=== PATIENT | female | born 1955 | race Caucasian/White ===

== ENCOUNTER → 2017-06-02 | Outpatient (CLI) | payer MEDICAID ==
[2017-06-02 09:46] LABS: ALT 31 U/L (9-52); AST 22 U/L (14-36); Alkaline Phosphatase 76 U/L (38-126); Anion Gap 9 mmol/L; Blood Urea Nitrogen 21 mg/dL (7-17); Calcium 9.5 mg/dL (8.4-10.2); Carbon Dioxide 29 mmol/L (22-30); Chloride 93 mmol/L (98-107); Cholesterol 279 mg/dL (<200); Glucose 104 mg/dL (74-99); HDL Cholesterol 102 mg/dL (40-60); Non-African American GFR(MDRD) >60 (>60 ml/min/1.73 sqM); Potassium 4.3 mmol/L (3.5-5.1); Sodium 131 mmol/L (137-145); Total Bilirubin 0.7 mg/dL (0.2-1.3); Total Protein 7.2 g/dL (6.3-8.2)
== END | disposition home or self-care (01) ==
LOC: LABWHC1 08:58
PROVIDERS: ATTEND Internal Medicine
DX: E78.5 Hyperlipidemia, unspecified (principal); I10 Essential (primary) hypertension
CPT/HCPCS: 36415; 80053; 80061

== ENCOUNTER → 2017-07-10 | Outpatient (CLI) | payer MEDICAID ==
--- NOTE | 2017-07-11 09:41 | MM ---
Reason for exam: screening (asymptomatic). Last mammogram was performed 1 year ago. History: Patient is postmenopausal and had first child at age 29. Family history of breast cancer in maternal grandmother and breast cancer in maternal aunt. Benign left US cyst aspiration of the left breast, May 16, 2007. Physical Findings: A clinical breast exam by your physician is recommended on an annual basis and results should be correlated with mammographic findings. MG 3D Screening Mammo W/Cad Bilateral CC and MLO view(s) were taken. Prior study comparison: July 07, 2016, bilateral MG 3d screening mammo w/cad. July 06, 2015, bilateral MG screening mammo w CAD. The breast tissue is heterogeneously dense. This may lower the sensitivity of mammography. Finding: There are typically benign round calcifications in both breasts. There is no discrete abnormality. ASSESSMENT: Negative, BI-RAD 1 RECOMMENDATION: Routine screening mammogram of both breasts in 1 year.
== END | disposition home or self-care (01) ==
LOC: RADMAMWWP 09:50
PROVIDERS: ATTEND Obstetrics & Gynecology
DX: Z12.31 Encounter for screening mammogram for malignant neoplasm of breast (principal)
CPT/HCPCS: 77063; G0202

== ENCOUNTER → 2017-12-21 | Outpatient (CLI) | payer MEDICAID ==
[2017-12-21 10:36] LABS: HCT 40.4 % (34.0-46.0); HGB 14.1 gm/dL (11.4-16.0); MCH 31.5 pg (25.0-35.0); MCHC 34.9 g/dL (31.0-37.0); MCV 90.2 fL (80.0-100.0); Mean Platelet Volume 6.6; Platelet Count 227 k/uL (150-450); RBC 4.47 m/uL (3.80-5.40); RDW 14.1 % (11.5-15.5); WBC 4.6 k/uL (3.8-10.6)
[2017-12-21 10:48] LABS: ALT 20 U/L (9-52); AST 22 U/L (14-36); Albumin 4.4 g/dL (3.5-5.0); Alkaline Phosphatase 68 U/L (38-126); Anion Gap 10 mmol/L; Blood Urea Nitrogen 19 mg/dL (7-17); Calcium 9.7 mg/dL (8.4-10.2); Carbon Dioxide 31 mmol/L (22-30); Chloride 92 mmol/L (98-107); Cholesterol 306 mg/dL (<200); Glucose 96 mg/dL (74-99); HDL Cholesterol 95 mg/dL (40-60); LDL Cholesterol,Calculated 194 mg/dL (0-99); Potassium 4.2 mmol/L (3.5-5.1); Sodium 133 mmol/L (137-145); Triglycerides 87 mg/dL (<150)
== END | disposition home or self-care (01) ==
LOC: LABWHC1 09:40
PROVIDERS: ATTEND Internal Medicine
DX: I10 Essential (primary) hypertension (principal); E78.5 Hyperlipidemia, unspecified
CPT/HCPCS: 36415; 80053; 80061; 85027

== ENCOUNTER → 2018-07-18 | Outpatient (CLI) | payer MEDICAID ==
--- NOTE | 2018-07-19 12:11 | MM ---
Reason for exam: screening (asymptomatic). Last mammogram was performed 1 year ago. History: Patient is postmenopausal and had first child at age 29. Family history of breast cancer in maternal grandmother and breast cancer in maternal aunt. Benign left US cyst aspiration of the left breast, May 16, 2007. MG 3D Screening Mammo W/Cad Bilateral CC and MLO view(s) were taken. Prior study comparison: July 10, 2017, bilateral MG 3d screening mammo w/cad. July 07, 2016, bilateral MG 3d screening mammo w/cad. The breast tissue is heterogeneously dense. This may lower the sensitivity of mammography. No significant changes when compared with prior studies. ASSESSMENT: Benign, BI-RAD 2 RECOMMENDATION: Routine screening mammogram of both breasts in 1 year.
== END ==
LOC: RADMAMWWP 10:01
PROVIDERS: ATTEND Obstetrics & Gynecology
DX: Z12.31 Encounter for screening mammogram for malignant neoplasm of breast (principal)
CPT/HCPCS: 77063; 77067

== ENCOUNTER → 2019-08-12 | Outpatient (CLI) | payer MEDICARE, BC ==
--- NOTE | 2019-08-12 16:41 | BD ---
EXAMINATION TYPE: Axial Bone Density DATE OF EXAM: 08/12/2019 COMPARISON: 07/07/2016 CLINICAL HISTORY: Height: 62.5 IN Weight: 126 LBS RISK FACTORS HISTORY OF: Surgery to Hip(right) : YES When: 2016 Family History of Osteoporosis: MOTHER Active: YES Postmenopausal woman: AGE 48 MEDICATIONS: Osteoporosis Medications: NOT NOW Which medication: Fosamax FORTEO How Lon YEARS Additional Medications: CALCIUM, VIT D, BLOOD PRESSURE , CHOLESTEROL MEDS, FISH OIL, MULTI VIT, VIT C , VIT E, LYSINE,PROBIOTIC EXAM MEASUREMENTS: Bone mineral densitometry was performed using the [employer] System. Bone mineral density as measured about the Lumbar spine is: ----- L1-L4(G/cm2): 0.936 T Score Values are as follows: ----- L2: -2.6 ----- L3: -2.3 ----- L4: -1.2 ----- L1-L4: -2.0 Bone mineral density has: Decreased -8.6% since study of: 07/07/2016 RT HIP REPLACEMENT IN 2015 Bone mineral density about the L hip (g/cm2): 0.622 T Score values are as follows: -----L Neck: -3.0 -----L Total: -3.0 Bone mineral density has: Decreased -7.2% since study of: 07/07/2016 IMPRESSION: Osteoporosis (T Score less than -2.5). There is increased fracture risk and therapy is usually indicated based on age. Re-Screen 1-2 years. NOTE: T-SCORE=SD OF THE YOUNG ADULT MEAN.
--- NOTE | 2019-08-13 09:19 | MM ---
Reason for exam: screening (asymptomatic). Last mammogram was performed 1 year and 1 month ago. History: Patient is postmenopausal and had first child at age 29. Family history of breast cancer in maternal grandmother and breast cancer in maternal aunt. Benign left US cyst aspiration of the left breast, May 16, 2007. Physical Findings: A clinical breast exam by your physician is recommended on an annual basis and results should be correlated with mammographic findings. MG 3D Screening Mammo W/Cad Bilateral CC and MLO view(s) were taken. Prior study comparison: July 18, 2018, bilateral MG 3d screening mammo w/cad. July 10, 2017, bilateral MG 3d screening mammo w/cad. The breast tissue is heterogeneously dense. This may lower the sensitivity of mammography. Stable benign calcifications. There is no discrete abnormality. No significant changes when compared with prior studies. ASSESSMENT: Benign, BI-RAD 2 RECOMMENDATION: Routine screening mammogram of both breasts in 1 year.
== END | disposition home or self-care (01) ==
LOC: RADMAMWWP 10:06
PROVIDERS: ATTEND Obstetrics & Gynecology
DX: Z12.31 Encounter for screening mammogram for malignant neoplasm of breast (principal); M81.0 Age-related osteoporosis without current pathological fracture
CPT/HCPCS: 77063; 77067; 77080

== ENCOUNTER → 2019-09-16 | Outpatient (CLI) | payer MEDICARE, BC ==
[~2019-09-16] MED LIST: SODIUM CHLORIDE 0.9% 500 ML 500 ML in EMPTY BAG 1 BAG IV PRN; ZOLEDRONIC ACID 5 MG in SODIUM CHLORIDE 0.9% 100 ML IV NR
[2019-09-16 11:20] VITALS: BP 172/94; PULSE 73; RESP 16; TEMP 98.1
== END | disposition home or self-care (01) ==
LOC: PROCWHC3 10:59
PROVIDERS: ATTEND Internal Medicine
DX: M81.0 Age-related osteoporosis without current pathological fracture (principal)
CPT/HCPCS: 96365; J3489

== ENCOUNTER → 2020-08-17 | Outpatient (CLI) | payer MEDICARE, BC ==
--- NOTE | 2020-08-18 13:29 | MM ---
Reason for exam: screening (asymptomatic). Last mammogram was performed 1 year ago. History: Patient is postmenopausal and had first child at age 29. Family history of breast cancer in maternal grandmother and breast cancer in maternal aunt. Benign left US cyst aspiration of the left breast, May 16, 2007. Physical Findings: A clinical breast exam by your physician is recommended on an annual basis and results should be correlated with mammographic findings. MG 3D Screening Mammo W/Cad Bilateral CC and MLO view(s) were taken. XCCL view(s) were taken of the right breast. Prior study comparison: August 12, 2019, bilateral MG 3d screening mammo w/cad. July 18, 2018, bilateral MG 3d screening mammo w/cad. The breast tissue is heterogeneously dense. This may lower the sensitivity of mammography. There are benign appearing round calcifications bilaterally. There is no discrete abnormality. Right skin lesion redemonstrated. ASSESSMENT: Benign, BI-RAD 2 RECOMMENDATION: Routine screening mammogram of both breasts in 1 year.
== END | disposition home or self-care (01) ==
LOC: RADMAMWWP 09:48
PROVIDERS: ATTEND Obstetrics & Gynecology
DX: Z12.31 Encounter for screening mammogram for malignant neoplasm of breast (principal); Z80.3 Family history of malignant neoplasm of breast
CPT/HCPCS: 77063; 77067

== ENCOUNTER → 2020-09-17 | Outpatient (CLI) | payer MEDICARE, BC ==
[2020-09-17 09:13] VITALS: RESP 16
[2020-09-17 09:14] VITALS: PULSE 92; TEMP 98.1
== END | disposition home or self-care (01) ==
LOC: PROCWHC3 09:06
PROVIDERS: ATTEND Internal Medicine
DX: M81.0 Age-related osteoporosis without current pathological fracture (principal)
CPT/HCPCS: 96365; J3489

== ENCOUNTER → 2021-08-09 | Outpatient (CLI) | payer MEDICARE ==
[2021-08-09 16:43] LABS: African American GFR (CKD) 103.2 (60.0-200.0); Albumin 4.7 g/dL (3.8-4.9); Albumin/Globulin Ratio 2.24 (1.60-3.17); Anion Gap 11.2 mmol/L (4.00-12.00); BUN/Creat Ratio 25.86 Ratio (12.00-20.00); Blood Urea Nitrogen 18.1 mg/dL (9.0-27.0); Calcium 9.8 mg/dL (8.7-10.3); Carbon Dioxide 27.8 mmol/L (21.6-31.8); Globulin 2.1 g/dL (1.6-3.3); Potassium 3.9 mmol/L (3.5-5.5); Total Bilirubin 0.5 mg/dL (0.30-1.20); Total Protein 6.8 g/dL (6.2-8.2)
== END | disposition home or self-care (01) ==
LOC: LABWHC1 09:26
PROVIDERS: ATTEND Internal Medicine
DX: E55.9 Vitamin D deficiency, unspecified (principal); M81.0 Age-related osteoporosis without current pathological fracture
CPT/HCPCS: 36415; 80053; 82306; 82523; 83970

== ENCOUNTER → 2021-08-19 | Outpatient (CLI) | payer MEDICARE ==
--- NOTE | 2021-08-19 14:11 | BD ---
EXAMINATION TYPE: Axial Bone Density DATE OF EXAM: 08/19/2021 COMPARISON: 08.12.2019 CLINICAL HISTORY: 66 YR OLD FEMALE....ICD-10 CODE: M81.0 OSTEOPOROSIS Height: 62.5 Weight: 124 FRAX RISK QUESTIONS: Family History (Parent hip fracture): YES RISK FACTORS HISTORY OF: Surgery to RT HIP.....THR 5YRS AGO Family History of Osteoporosis: YES, MOTHER WITH PELVIS FXS Postmenopausal woman: YES, AT 50 YRS Hyperparathyroidism: NO Adrenal Insufficiency: NO MEDICATIONS: FOSAMAX, ACTENOL, FORTEO, IN THE PAST ON RECLAST NOW....FOR OSTEOPOROSIS.. TREATMENT FOR ABOUT 7-10 YRS Additional Medications: BP MEDS, VALIUM, STATIN FOR CHOLESTEROL, VIT D AND CALCIUM, RECLAST Additional History: HYPERTENSION, CHOLESTEROL, OSTEOPOROSIS MEDS, EXAM MEASUREMENTS: Bone mineral densitometry was performed using the [employer] System. Bone mineral density as measured about the Lumbar spine is: ----- L1-L4(G/cm2): 0.0981 T Score Values are as follows: ----- L1: -2.3 ----- L2: -2.4 ----- L3: -1.8 ----- L4: -0.6 ----- L1-L4: -1.7 Bone mineral density has: Increased 4.7% since study of: 08.12.2019 Bone mineral density about the L hip (g/cm2): 0.672 T Score values are as follows: -----L Neck: -2.7 -----L Total: -2.7 Bone mineral density has: Increased 6.5% since study of: 08.12.2019 FRAX%s: THERE IS A 24.5% CHANCE FOR A MAJOR OSTEOPOROTIC FX AND A 6.7% FOR HIP.....PROBABILITY FO R FX IN 10 YRS TIME IMPRESSION: Osteoporosis NOTE: T-SCORE=SD OF THE YOUNG ADULT MEAN.
== END | disposition home or self-care (01) ==
LOC: RADBDWWP 10:36
PROVIDERS: ATTEND Internal Medicine
DX: M81.0 Age-related osteoporosis without current pathological fracture (principal)
CPT/HCPCS: 77080

== ENCOUNTER → 2021-08-19 | Outpatient (CLI) | payer MEDICARE ==
--- NOTE | 2021-08-20 11:50 | MM ---
Reason for exam: screening (asymptomatic). Last mammogram was performed 1 year ago. History: Patient is postmenopausal and had first child at age 29. Family history of breast cancer in maternal grandmother and breast cancer in maternal aunt. Benign left US cyst aspiration of the left breast, May 16, 2007. Physical Findings: A clinical breast exam by your physician is recommended on an annual basis and results should be correlated with mammographic findings. MG 3D Screening Mammo W/Cad Bilateral CC and MLO view(s) were taken. Prior study comparison: August 17, 2020, bilateral MG 3d screening mammo w/cad. August 12, 2019, bilateral MG 3d screening mammo w/cad. The breast tissue is heterogeneously dense. This may lower the sensitivity of mammography. There are benign appearing round calcifications bilaterally. There is no discrete abnormality. ASSESSMENT: Benign, BI-RAD 2 RECOMMENDATION: Routine screening mammogram of both breasts in 1 year.
== END | disposition home or self-care (01) ==
LOC: RADBDWWP 10:26
PROVIDERS: ATTEND Obstetrics & Gynecology
DX: Z12.31 Encounter for screening mammogram for malignant neoplasm of breast (principal); Z78.0 Asymptomatic menopausal state; Z80.3 Family history of malignant neoplasm of breast
CPT/HCPCS: 77063; 77067

== ENCOUNTER → 2022-08-22 | Outpatient (CLI) | payer MEDICARE ==
--- NOTE | 2022-08-23 10:32 | MM ---
Reason for Exam: Screening (asymptomatic). Last screening mammogram was performed 12 month(s) ago. Patient History: Menarche at age 11. First Full-Term at age 29. Late child-bearing (after 30). Postmenopausal. 05/16/2007, Benign Cyst Aspiration on the left side. Maternal grandmother had breast cancer, age 80. Maternal aunt had breast cancer under age 50. Risk Values: Kallie 5 year model risk: 2.4%. NCI Lifetime model risk: 7.3%. Prior Study Comparison: 08/12/2019 Bilateral Screening Mammogram, [facility]. 08/17/2020 Bilateral Screening Mammogram, [facility]. 08/19/2021 Bilateral Screening Mammogram, [facility]. Tissue Density: The breast tissue is heterogeneously dense. This may lower the sensitivity of mammography. Findings: Analyzed By CAD. There is no suspicious group of microcalcifications or new suspicious mass in either breast. Benign-appearing calcifications bilaterally. No significant change from prior exams. Overall Assessment: Benign, BI-RAD 2 Management: Screening Mammogram of both breasts in 1 year. A clinical breast exam by your physician is recommended on an annual basis and results should be correlated with mammographic findings. Electronically signed and approved by: Brian Tay D.O.
== END | disposition home or self-care (01) ==
LOC: RADMAMWWP 09:56
PROVIDERS: ATTEND Obstetrics & Gynecology
DX: Z12.31 Encounter for screening mammogram for malignant neoplasm of breast (principal); Z78.0 Asymptomatic menopausal state; Z80.3 Family history of malignant neoplasm of breast; Z98.890 Other specified postprocedural states
CPT/HCPCS: 77063; 77067

== ENCOUNTER → 2023-03-15 | Outpatient (CLI) | payer MEDICARE ==
--- NOTE | 2023-03-15 14:52 | US ---
EXAMINATION TYPE: US carotid duplex BILAT DATE OF EXAM: 03/15/2023 COMPARISON: NONE CLINICAL INDICATION: Female, 67 years old with history of I65.23OCCLUSION AND STENOSIS OF BILATERAL C ; Carotid stenosis. TECHNIQUE: Carotid duplex ultrasound examination. Indirect Doppler criteria was utilized. FINDINGS: EXAM MEASUREMENTS: RIGHT: Peak Systolic Velocity (PSV) cm/sec ----- Right CCA: 66.5 ----- Right ICA: 74.2 ----- Right ECA: 64.8 ICA/CCA ratio: 1.12 RIGHT: End Diastole cm/sec ----- Right CCA: 17.8 ----- Right ICA: 23.0 ----- Right ECA: 12.7 LEFT: Peak Systolic Velocity (PSV) cm/sec ----- Left CCA: 66.7 ----- Left ICA: 80.2 ----- Left ECA: 32.4 ICA/CCA ratio: 1.20 LEFT: End Diastole cm/sec ----- Left CCA: 17.9 ----- Left ICA: 22.2 ----- Left ECA: 0.6 VERTEBRALS (direction of flow): Right Vertebral: Antegrade Left Vertebral: Antegrade Rhythm: Normal TRANSPORT MANAGER NOTES: No elevated velocities at this time. Difficult to follow bilateral ICA distally du e to tortuous vessel. IMPRESSION: Less than 50% stenosis of the bilateral carotid bifurcations. Criteria for Assigning % of Stenosis / Diameter reduction (Estimation based on the indirect measurements of the internal carotid artery velocities (ICA PSV). 1. Normal (no stenosis)=ICA PSV < 125 cm/s: ratio < 2.0: ICA EDV<40 cm/s. 2. Less than 50% stenosis=ICA PSV < 125 cm/s: ratio < 2.0: ICA EDV<40 cm/s. 3. 50 to 69% stenosis=ICA PSV of 125 to 230 cm/s: ration 2.0 ? 4.0: ICA EDV 40-100 cm/s. 4. Greater than 70% stenosis to near occlusion= ICA PSV > 230 cm/s: ratio > 4.0: ICA EDV > 100 cm/s. 5. Near occlusion= ICA PSV velocities may be low or undetectable: variable ratio and ICA EDV. 6. Total occlusion=unable to detect flow.
== END | disposition home or self-care (01) ==
LOC: RADCTMAIN 10:54
PROVIDERS: ATTEND Internal Medicine
DX: I65.23 Occlusion and stenosis of bilateral carotid arteries (principal)
CPT/HCPCS: 93880

== ENCOUNTER → 2023-03-29 | Outpatient (CLI) | payer MEDICARE ==
--- NOTE | 2023-03-29 16:34 | CT ---
EXAMINATION TYPE: CT heart w calcium score DATE OF EXAM: 03/29/2023 COMPARISON: None HISTORY: Screening for cardiovascular disorder. 213.9 CT DLP: 74.10 mGycm Automated exposure control for dose reduction was used. CT CALCIUM SCORING Coronary calcium is a marker for plaque (fatty deposits) in a blood vessel or atherosclerosis (harden ing of the arteries). The presence and amount of calcium detected in a coronary artery by the CT sca n, indicates the presence and amount of atherosclerotic plaque. These calcium deposits appear years before the development of heart disease symptoms such as chest pain and shortness of breath. A calcium score is computed for each of the coronary arteries based upon the volume and density of th e calcium deposits. This can be referred to as your calcified plaque burden. It does not correspond directly to the percentage of narrowing in the artery but does correlate with the severity of the un derlying coronary atherosclerosis. PROCEDURE TECHNIQUE - Prospective Gating was used. Slice thickness: 3mm. Density threshold (HU): 130, Pixel threshold: 3, Algorithm: discrete. RESULTS Region: LM Calcium Score ([place]atston): 0 Volume (mm3): 0 Mass (g): 0 Region: RCA Calcium Score ([place]): 169.92 Volume (mm3): 175.29 Mass (g): 58.43 Region: LAD Calcium Score ([place]): 161.42 Volume (mm3): 145.89 Mass (g): 48.63 Region: CX Calcium Score ([place]): 69.15 Volume (mm3): 59.91 Mass (g): 19.97 Region: PDA Calcium Score ([place]): 0 Volume (mm3): 0 Mass (g): 0 Total: Calcium Score ([place]atston): 400 Volume (mm3): 381.08 Mass (g): 127.03 TOTAL CALCIUM SCORE: 400 IMPRESSION: Calcium Score: 400 Implication: Definite atheromatous plaquing with a high likelihood of mild coronary artery disease p resent. Significant narrowing may be present. Risk of Coronary Artery Disease: Mild coronary artery disease highly likely. Significant narrowing po ssible. Impression: 1. Definite atheromatous plaquing within the coronary vessels with likelihood of coronary vessel dise ase. Consider additional cardiac workup. CALCIUM SCORE IMPLICATION RISK OF C ORONARY ARTERY DISEASE 0 No identifiable plaque Very low, generally less than 5% 1-10 Minimal identifiable plaque Very unlikely, less than 10% 11-100 Definite, at least mild atherosclerotic plaque Mild or m inimal coronary narrowings likely 101-400 Definite, at least moderate atherosclerotic plaque Mild coronary ar royal disease highly likely, significant narrowing possible 401 or Higher Extensive atherosclerotic plaque High lik elihood of at least one significant coronary narrowing
== END | disposition home or self-care (01) ==
LOC: RADCTMAIN 09:02
PROVIDERS: ATTEND Internal Medicine
DX: Z13.6 Encounter for screening for cardiovascular disorders (principal); I25.10 Atherosclerotic heart disease of native coronary artery without angina pectoris
CPT/HCPCS: 75571

== ENCOUNTER → 2023-05-09 | Outpatient (CLI) | payer MEDICARE ==
--- NOTE | 2023-05-09 14:11 | NM ---
EXAMINATION TYPE: NM stress cardiolite complete DATE OF EXAM: 05/09/2023 COMPARISON: NONE CLINICAL INDICATION: Female, 67 years old with history of R93.1 abn findings; TECHNIQUE: After the intravenous administration of 8.7 mCi Tc 99m Sestamibi - Rest images obtained 6 2 minutes post injection. The patient exercised using a KATHY protocol and 1 minute prior to peak e xercise was injected with 23 mCi Tc 99m Sestamibi - Stress images obtained 39 minutes post injection. FINDINGS: Targeted heart rate was achieved during performance of the study. Review of stress and rest SPECT katy ges demonstrates decreased perfusion involving the anterior wall near the cardiac base on stress imag es and therefore stress-induced ischemia is difficult to exclude. Fixed defect cardiac septum. Gated analysis shows normal wall motion with an estimated left ventricular ejection fraction of 64 %. IMPRESSION: I cannot exclude stress-induced ischemia anterior wall near the cardiac base. Correlate clinically.
--- NOTE | 2023-05-09 16:52 | CA ---
Exercise Nuclear Stress Test Report Name: Estephanie Wise Exam Date: 05/09/2023 09:37 Exam Location: [facility] Ht (in): 63 Wt (lb): 127 BSA: 1.59 Ordering Phys: Chele Mcneal MD Referring Phys: Fredis,, Technologist: JOSE,, Age: 67 Gender: F : 1955 Procedure CPT: Indications: R93.1 abn findings ICD-10 Codes: Patient History: Abnormal EKG Medications: Meds past 24 hrs: Pretest Chest Pain: STRESS TEST Cristopher Protocol Exercise Duration (min:sec): 10:[address] Depressions (mm): Angina Score: Smith Score: Resting HR (bpm): 57 Peak HR (bpm): 144 Resting BP (mmHg): 175 / 97 Peak BP (mmHg): 212 / 109 MPHR: 151 Target HR: 128 % MPHR: 95 METS: 12.1 Total Dose: Peak Dose: Atropine: Double Product: 68633 BP Response: Stress Termination: Reached target heart rate Stress Symptoms: No chest pain or symptoms Stress Summary: ECG ANALYSIS Resting ECG: Stress ECG: CONCLUSIONS Exercise stress test Good exercise capacity and a Cristopher protocol of 10 minutes Normal heart rate response, peak 100 144 beats a minute Hypertensive response to exercise. Peak blood pressure 212 109 mmHg No ECG evidence for ischemia Nuclear portion will be reported separately Dr. Stan Ambrosio MD (Electronically Signed) Final Date: 09 May 2023 16:51
== END | disposition home or self-care (01) ==
LOC: RADNMMAIN 07:38
PROVIDERS: ATTEND Internal Medicine
DX: I10 Essential (primary) hypertension (principal); R93.1 Abnormal findings on diagnostic imaging of heart and coronary circulation
CPT/HCPCS: 93017; 78452; A9500

== ENCOUNTER → 2023-08-23 | Outpatient (CLI) | payer MEDICARE ==
--- NOTE | 2023-08-23 19:29 | BD ---
EXAMINATION TYPE: Axial Bone Density DATE OF EXAM: 08/23/2023 CLINICAL HISTORY: 68 years old Female. ICD-10 CODE: M85.81 DISORDER OF BONE DENSITY Height: 62 Weight: 121 FRAX RISK QUESTIONS: Family History (Parent hip fracture): yes History of Fracture in Adulthood: yes, many RISK FACTORS HISTORY OF: Hip Fracture ): rt hip and lt femur fxs as an adult, at age 56 Spine Fracture: cervicle and thoracic at 56 yrs old History of Wrist Fracture: bilat carpal tunnel surg Surgery to Spine/Hip()/Wrist (): yes, to right hip at 61 yrs old, and rojelio in lt femur, bilat carpal t unnel surgery at 56 yrs old Family History of Osteoporosis: yes, mother Postmenopausal woman: yes, at age 53 yrs old, no hormones Hyperparathyroidism: no Adrenal Insufficiency: no MEDICATIONS: Osteoporosis Medications: yes, in the past actenol, forteo, reclast, treatment for over 10 yrs, nothi ng now Additional Medications: bp meds, cholesterol meds, vit d and calcium, valium, statin for cholesterol, Additional History: hypertension, cholesterol, anxiety, osteoporosis, EXAM MEASUREMENTS: Bone mineral densitometry was performed using the [employer] System. Bone mineral density as measured about the Lumbar spine is: ----- L1-L4(G/cm2): 1.012 T Score Values are as follows: ----- L1: -2.2 ----- L2: -2.4 ----- L3: -1.6 ----- L4: -0.1 ----- L1-L4: -1.4 Z Score Values are as follows: ----- L1: -0.2 ----- L2: -0.4 ----- L3: 0.4 ----- L4: 1.9 ----- L1-L4: 0.6 Bone mineral density has: Increased 3.2% since study of: 08.19.2021 Bone mineral density about the L hip (g/cm2): 0.686 T Score values are as follows: -----L Neck: -2.5 -----L Total: -2.6 Z Score values are as follows: -----L Neck: -0.6 -----L Total: -0.9 Bone mineral density has: Increased 2.1% since study of: 08.19.2021 FRAX%s: The graph provided illustrates a 33.9% chance for a major osteoporotic fx and a 12.0% chance for the hips probability for fx in 10 years time. IMPRESSION: Osteoporosis (T Score less than -2.5). There is increased fracture risk and therapy is usually indicated based on age. Re-Screen 1-2 years. NOTE: T-SCORE=SD OF THE YOUNG ADULT MEAN.
--- NOTE | 2023-08-27 17:57 | MM ---
Reason for Exam: Screening (asymptomatic). Last screening mammogram was performed 12 month(s) ago. Patient History: Menarche at age 11. First Full-Term at age 29. Late child-bearing (after 30). Postmenopausal. 05/16/2007, Benign Cyst Aspiration on the left side. Maternal grandmother had breast cancer, age 80. Maternal aunt had breast cancer under age 50. Risk Values: Kallie 5 year model risk: 2.4%. NCI Lifetime model risk: 6.9%. Prior Study Comparison: 08/17/2020 Bilateral Screening Mammogram, [facility]. 08/19/2021 Bilateral Screening Mammogram, [facility]. 08/22/2022 Bilateral MG 3D screening mammo w/cad, [facility]. Tissue Density: The breast tissue is heterogeneously dense. This may lower the sensitivity of mammography. Findings: Analyzed By CAD. Grouped microcalcifications in the upper outer quadrant of the left breast are increasing. Further magnification views are recommended. Otherwise, no significant change. Overall Assessment: Incomplete: need additional imaging evaluation, BI-RAD 0 Management: Special View Mammogram of the left breast. Additional views to include mag CC, magnified lateral, and 3-D ML views. [facility] will attempt to contact patient to return for supplemental views and ultrasound if indicated. Electronically signed and approved by: Ryan Travis M.D. Radiologist
== END | disposition home or self-care (01) ==
LOC: RADMAMWWP 09:36
PROVIDERS: ATTEND Internal Medicine
DX: Z12.31 Encounter for screening mammogram for malignant neoplasm of breast (principal); M85.89 Other specified disorders of bone density and structure, multiple sites; M81.0 Age-related osteoporosis without current pathological fracture; Z78.0 Asymptomatic menopausal state; Z80.3 Family history of malignant neoplasm of breast
CPT/HCPCS: 77063; 77067; 77080

== ENCOUNTER → 2023-08-31 | Outpatient (CLI) | payer MEDICARE ==
--- NOTE | 2023-09-04 07:59 | MM ---
Reason for Exam: Additional evaluation requested from abnormal screening. Last screening mammogram was performed less than 1 month ago. Patient History: Menarche at age 11. First Full-Term at age 29. Late child-bearing (after 30). Postmenopausal. 05/16/2007, Benign Cyst Aspiration on the left side. Maternal grandmother had breast cancer, age 80. Maternal aunt had breast cancer under age 50. Risk Values: Kallie 5 year model risk: 2.4%. NCI Lifetime model risk: 6.9%. Prior Study Comparison: 08/19/2021 Bilateral Screening Mammogram, [facility]. 08/22/2022 Bilateral MG 3D screening mammo w/cad, [facility]. 08/23/2023 Bilateral MG 3D screening mammo w/cad, [facility]. Tissue Density: Left: The breast tissue is heterogeneously dense. This may lower the sensitivity of mammography. Findings: Analyzed By CAD. Increasing indeterminate microcalcifications upper outer left breast zone B. Stereotactic core biopsy is recommended. Overall Assessment: Suspicious, BI-RAD 4 Management: Stereotactic Core Biopsy of the left breast. Results were given to the patient verbally at the time of exam. Patient should continue monthly self-breast exams. A clinical breast exam by your physician is recommended on an annual basis. This exam should not preclude additional follow-up of suspicious palpable abnormalities. Note on Kallie scores and lifetime risk: 1. A Kallie score greater than 3% is considered moderate risk. If this is the case, consider specialist referral to assess eligibility for a risk reducing agent. 2. If overall lifetime risk for the development of breast cancer is 20% or higher, the patient may qualify for future screening with alternating mammogram and breast MRI. Electronically signed and approved by: Zurdo Hanson M.D. Radiologis
== END | disposition home or self-care (01) ==
LOC: RADMAMWWP 13:34
PROVIDERS: ATTEND Internal Medicine
DX: Z78.0 Asymptomatic menopausal state (principal); Z80.3 Family history of malignant neoplasm of breast; R92.331 Mammographic heterogeneous density, right breast
CPT/HCPCS: 77065; G0279; 77061

== ENCOUNTER → 2023-09-14 | Day surgery (SDC) | payer MEDICARE ==
[2023-09-14 10:37] VITALS: RESP 16
[2023-09-14 11:27] VITALS: BP 150/89; PULSE 59; TEMP 98.1
--- NOTE | 2023-09-21 12:07 | MM ---
Risk Values: Kallie 5 year model risk: 2.4%. NCI Lifetime model risk: 6.9%. Prior Study Comparison: 08/22/2022 Bilateral MG 3D screening mammo w/cad, [facility]. 08/23/2023 Bilateral MG 3D screening mammo w/cad, [facility]. 08/31/2023 Left MG 3D work up w/cad , [facility]. Pathology Description: Marker Left Behind. Specimen Radiograph. Approach: Lateral to Medial Cores: 7 Skin Nicks: 1 Gauge: 9 The procedure of stereotactic guided core biopsy was explained to the patient. Benefits, alternatives, and risks were discussed. An informed consent was then obtained. The shortness pathway for biopsy was chosen. Shortness pathway was a lateral approach. I performed the localization followed by the remainder of the procedure. A vacuum assisted biopsy gun was used to obtain 6 core samples. The patient tolerated the procedure well without any immediate complication. The patient was kept in the radiology department for short stay after the procedure and then discharged home in stable condition. Targeted calcifications are identified in specimen mammogram. Post biopsy mammogram shows the clip to appear in satisfactory position relative to the targeted area of concern on the preprocedure images. IMPRESSION: SUCCESSFUL, UNCOMPLICATED STEREOTACTIC GUIDED CORE BIOPSY OF LATERAL GROUPED MICROCALCIFICATIONS IN THE LEFT BREAST. Pathology Results: Result: Malignant, Ductal carcinoma in situ, comedo type. 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 Background fibrocystic changes and fibroadenoma/fibroadenomatoid hyperplasia. See Surgical Pathology Cancer Case Summary and Comment. Overall Assessment: Malignant Management: Surgical Consultation of the left breast. Electronically signed and approved by: Ryan Travis M.D. Radiologist
== END ==
LOC: RADMAMWWP 09:54
PROVIDERS: ATTEND Internal Medicine
DX: D05.12 Intraductal carcinoma in situ of left breast (principal); Z17.0 Estrogen receptor positive status [ER+]
CPT/HCPCS: 88305; 19081; J2001; 88341; 88342

== ENCOUNTER → 2024-05-17 | Outpatient (CLI) | payer MEDICARE ==
[2024-05-17 14:30] LABS: Appearance,BF Hazy; Color,BF Yellow; Nucleated Cells, Body Fluid 111 /uL; RBC, Body Fluid 1800 /uL
[2024-05-17 15:55] LABS: Mononuclear WBC,Body Fluid 62 %; Polynuclear WBC,Body Fluid 38 %; Total Cells Counted,Body Fluid 200
[2024-05-17 16:27] LABS: Basophils # (A) 0.02 X 10*3/uL (0.00-0.10); Basophils % (A) 0.4 %; Eosinophils # (A) 0.06 X 10*3/uL (0.04-0.35); Eosinophils % (A) 1.2 %; HCT 42.2 % (37.2-46.3); HGB 14.4 g/dL (12.0-15.0); Lymphocytes % (A) 13.7 %; MCHC 34.1 g/dL (32.0-37.0); MCV 90.8 FL (80.0-97.0); Mean Platelet Volume 9.6 FL (9.5-12.2); Monocytes # (A) 0.72 X 10*3/uL (0.20-1.00); Monocytes % (A) 14.1 %; NRBC Per 100 WBC 0 X 10*3/uL (0.00-0.01); Neutrophils # (A) 3.58 X 10*3/uL (1.80-7.70); Platelet Count 220 X 10*3/uL (140-440); RBC 4.65 X 10*6/uL (4.10-5.20); RDW 12.9 % (11.5-14.5); WBC 5.11 X 10*3/uL (4.50-10.00)
[2024-05-17 16:48] LABS: Erythrocyte Sedimentation Rate 14 mm/Hr (0-30)
== END ==
LOC: LABWHC1 09:54
PROVIDERS: ATTEND Orthopaedic Surgery
DX: M25.511 Pain in right shoulder (principal); M19.011 Primary osteoarthritis, right shoulder; M67.411 Ganglion, right shoulder; E78.5 Hyperlipidemia, unspecified
CPT/HCPCS: 36415; 85025; 85652; 86140; 87070; 87075; 87205; 89050

== ENCOUNTER 2024-08-13 05:33 | Day surgery (SDC) | payer MEDICARE ==
[2024-08-08 15:39] VITALS: BMI 22.1
[~2024-08-13 05:33] MED LIST changes: -SODIUM CHLORIDE 0.9% 500 ML 500 ML in EMPTY BAG 1 BAG IV PRN; +TRANEXAMIC 1,000 MG/100ML-NACL 1,000 MG in SALINE 1 100ML.BAG IVPB PRN; -ZOLEDRONIC ACID 5 MG in SODIUM CHLORIDE 0.9% 100 ML IV NR
[2024-08-13] MEDS ORDERED: LIDOCAINE 1% (10MG/ML) FOR IV START INTRADERMA PRN (05:38)
[2024-08-13] MEDS: ACETAMINOPHEN TAB 500 MG TAB PO PRN (06:32)
[2024-08-13] MEDS: MELOXICAM 7.5 MG TAB PO PRN (06:32)
[2024-08-13] MEDS: GABAPENTIN 300 MG CAP PO PRN (06:33)
[2024-08-13] MEDS: DEXAMETHASONE SOD PHOSPHATE 4 MG/ML 1 ML VIAL IV ONE (06:34)
[2024-08-13] MEDS: ONDANSETRON 4 MG/2 ML VIAL IVP ONE (06:34)
[2024-08-13] MEDS: MIDAZOLAM 2 MG/2 ML VIAL IV PRN (06:46)
[2024-08-13] MEDS: fentaNYL (PF) 50 MCG/ML 2 ML AMP IVP PRN (06:46)
[2024-08-13] MEDS: IV FLUID CONTINUATION 1,000 ML IV ONE (06:58)
[2024-08-13] MEDS: LACTATED RINGERS 1,000 ML IV SCH (06:58)
[2024-08-13] MEDS ORDERED: HYDROmorphone 0.5 MG/0.5 ML SYRINGE IVP PRN (07:00)
[2024-08-13] MEDS: ceFAZolin 1,000 MG in SODIUM CHLORIDE 0.9% 1,000 ML IRRIGATION ONE (07:34)
--- NOTE | 2024-08-13 08:18 | P.OP ---
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 Biomet comprehensive reverse shoulder system, humeral bearing, 36 mm, standard Biomet comprehensive reverse shoulder system, mini humeral tray, 40 mm, +0, standard Biomet comprehensive reverse shoulder, Glenosphere mini baseplate, 25 mm Biomet comprehensive reverse shoulder, central screw, 6.5 mm x 30 mm Biomet comprehensive reverse shoulder, fixed locking screw, 4.75 x 20 mm, 15 mm, 15 mm, 20 mm. Biomet comprehensive reverse shoulder glenosphere, 36 mm, standard All components were press-fit. Articulation is metal on polyethylene.Articulation is metal on polyethylene. Anesthesia: GETA Surgeon: Facundo Parr Clay Mixer #1: Kaity Mark Estimated Blood Loss (ml): 200 Pathology: none sent Condition: stable Disposition: PACU Indications for Procedure: This is a patient that presented to my office with severe pain in the shoulder. X-rays demonstrated severe osteoarthritis of the glenohumeral joint of her shoulder. After failure of conservative treatment, we discussed the surgical and nonsurgical treatment options at length. The patient wishes to proceed with a reverse total shoulder arthroplasty. Patient is aware of the complications of the procedure which include but are not limited to infection, hardware failure, persistent pain, dislocation, and nerve injury. Informed consent was obtained. Operative Findings: The operative findings are consistent with severe glenohumeral osteoarthritis with rotator cuff tear Description of Procedure: The patient was seen in the preoperative area, consent was reviewed, and operative site was marked with a skin marker. The patient was given an interscalene block in the preoperative area by anesthesia. Patient was then brought to the operating room and given preoperative antibiotics intravenously. Patient was also given 1 g of Tranexamic acid intravenously. A general anesthetic was administered by the anesthesia department. The patient was then placed in a beachchair position with the bony prominences well-padded and the head secured. The shoulder was then prepped and draped in the usual sterile fashion. A universal timeout was then performed, which confirmed the patient's name, surgical site, ALLERGIES, and consent. A standard deltopectoral approach was performed. The skin and subcutaneous tissue was sharply dissected down to the deltoid fascia. The cephalic vein was then identified and retracted medially. The deltopectoral interval was then ut ilized to expose the subscapularis tendon. A retractor was then placed under the coracobrachialis tendon retracted medially, and the deltoid. The axillary nerve is palpated and protected throughout the procedure. The subscapularis tendon was then released and retracted medially. A large cyst was encountered anteriorly from the glenohumeral joint. This was evacuated with suction. The humeral head was then exposed easily. The rotator cuff tendon was found to be completely torn and retracted. After the humeral head was exposed, osteophytes were removed with a Ronguer. Next the humeral stem was prepared. A starter reamer was then placed through the humeral head along the axis of the humeral shaft just lateral to the articular surface and just medial to the rotator cuff attachment. Sequential reaming was performed to the appropriate size reamer was inserted to the #between the 3 and 4 on the reamer. Next the intramedullary resection guide was placed on the reamer shaft. It was placed to the appropriate resection depth and angle of 30 of retroversion. Resection guide block was then secured with Steinmann pins. The proximal humerus was then resected. The block was then re moved and the humerus was then broached sequentially to the same size as the reamer. After the broaches fully seated, the broach handle was removed and a broach cover was placed protect the humerus while the glenoid was prepared. Next attention was directed to the glenoid. The appropriate retractors were placed around the glenoid and any remaining soft tissues was removed from around the glenoid. After the glenoid was adequately exposed, the threaded glenoid guide was placed onto the glenoid and a 3.2 mm Steinmann pin was inserted in the glenoid at the desired angle and position, ensuring the pin engaged medial cortical wall. Next, the cannulated baseplate reamer was placed over the top of the Steinmann pin. The glenoid was then reamed to the appropriate depth. The glenoid reamer was then removed, leaving the Steinmann pin. The glenoid Shashi plate implant was placed on the end of the cannulated baseplate impactor. The baseplate was then impacted fully into the glenoid. Next the 6.5 mm central screw was then placed which afforded excellent fixation. The 4 peripheral locking screws were then drilled measured and placed. Next the appropriate glenosphere was opened and impacted into the glenoid baseplate. Attention was then redirected to the humerus. Next a trial humeral tray was placed in the shoulder was reduced. Shoulder was taken through a full range of motion and found to be stable. The shoulder was then gently dislocated, and the trial humerus and humeral tray were removed. The final humeral stem was impacted in the final humeral tray was impacted as well. Shoulder was then relocated. Again the shoulder was taken through a range of motion and found to have no instability. Shoulder was then irrigated with pulsatile lavage. The shoulder was then irrig ated with Irrisept solution. A second dose of 1 g of Tranexamic acid was given. The subscapularis was then repaired with #1 Vicryl. The deltopectoral interval was then closed with #1 Vicryl as well. The subcutaneous tissues were closed with 3-0 Vicryl then 3-0 monocryl. Exofin glue was placed on the skin. A sterile dressing was then applied, the patient was transported to the recovery room in an arm sling in stable condition. The assistant professor of english Kaity Mark NP was required due the complexity of surgery and the need for a skilled certified ophthalmic surgical assistant.
[2024-08-13] MEDS: LACTATED RINGERS 1,000 ML IV ONE (08:23)
[2024-08-13] MEDS ORDERED: hydrOXYzine pamoate 25 MG CAP PO PRN (08:46)
[2024-08-13] MEDS ORDERED: MORPHINE SULFATE 2 MG/ML SYRINGE IV PRN ×2 (08:46)
[2024-08-13] MEDS ORDERED: HYDROcodone/APAP 5-325MG 1 EACH TAB PO PRN (08:46)
--- NOTE | 2024-08-13 09:19 | XR ---
EXAMINATION TYPE: XR shoulder limited RT DATE OF EXAM: 08/13/2024 COMPARISON: NONE CLINICAL INDICATION: Female, 69 years old with history of assess alignment, s/p RSA; TECHNIQUE: Single portable AP view FINDINGS: Image shows placement of reverse right total shoulder. Glenosphere and humeral stem compone nts of the prosthesis appear well seated alignment appears satisfactory. Soft tissue air related to r ecent operation. IMPRESSION: Uncomplicated postoperative appearance reverse right total shoulder arthroplasty. [facility], , 08/13/2024 9:17 AM
--- NOTE | 2024-08-13 16:50 | P.CONS ---
History of Present Illness - Reason for Consult Consult date: 08/13/24 Medical management Requesting physician: Facundo Parr - Chief Complaint Status post right total reverse shoulder arthroplasty. - History of Present Illness HISTORY OF PRESENT ILLNESS: This is a 69-year-old female patient of mine with a previous medical history significant for hypertension and hypertensive heart vascular disease, hyperlipidemia, history of coronary artery disease involving the left anterior descending coronary artery about 70% on the CT angiography of the coronary artery that was done in 2022, has been managed medically with baby aspirin 81 mg once every day, Zetia 10 mg once every day, rosuvastatin 20 mg orally once every day, her LDL is less than 70, patient has been pretty active at this point in time, she also was diagnosed with breast cancer status post left partial mastectomy followed by radiation and chemotherapy as well, patient underwent right total shoulder reverse arthroplasty that was done successfully and we were asked to see the patient for medical management postoperatively. Patient is laying down in bed in no apparent distress, she did have an episode of dizziness on her way to the bathroom today, patient was instructed to increase her fluid intake, continue IV fluid resuscitation overnight at 75 cc an hour, continue IV antibiotic, patient is feeling a bit better at this time, she has no chest pain or shortness of breath, she has no abdominal pain, nausea vomiting or diarrhea. REVIEW OF SYSTEMS: Constitutional: No documented fever, no chills, no night sweats. No weight change. No weakness, fatigue or lethargy. No daytime sleepiness. EENT: No headache. No blurred vision or double vision, no loss of vision. No loss of Hearing, no ringing in the ears, no dizziness. No nasal drainage or congestion. No epistaxis. No sore throat. Lungs: No shortness of breath, no cough, no sputum production. No wheezing. Reports dyspnea with activity. Cardiovascular: No chest pain, no lower extremity edema. No palpitations. No paroxysmal nocturnal dyspnea. No orthopnea. No lightheadedness mild dizziness. No syncopal episodes. Abdominal: Reports abdominal pain. No nausea, vomiting. No diarrhea. No constipation. No bloody or tarry stools reports loss of appetite. Genitourinary: No dysuria, increased frequency, urgency. No urinary retention. Musculoskeletal: No myalgias. No muscle weakness, no gait dysfunction, no frequent falls. No back pain. No neck pain. Integumentary: Right shoulder wound is covered, no lesions. No rash or pruritus. No unusual bruising. No change in hair or nails. Neurologic: No aphasia. No facial droop. No change in mentation. No head injury. No headache. No paralysis. No paresthesia. Psychiatric: No depression. No anxiety. No mood swings. Endocrine: No abnormal blood sugars. No weight change. PAST MEDICAL HISTORY: Coronary artery disease documented on CT angiography of the coronary artery about 70% of the LAD 2022. Hypertension and hypertensive cardiovascular disease. Mixed hyperlipidemia. Osteoarthritis. Osteoporosis. Breast cancer status post left partial mastectomy followed by radiation and chemotherapy. PAST SURGICAL HISTORY: Left partial mastectomy September 2023. Tarlov cyst surgery. Tonsillectomy and adenoidectomy. Bilateral cataract surgery. Right hip replacement. Breast biopsy. Carpal tunnel surgery x 2. Colonoscopy 12/08/2014. SOCIAL HISTORY: Patient is a lifelong non-smoker, she drinks occasionally, she denies any drug use or abuse, she lives with her . FAMILY HISTORY: Father at the age of 53 from coronary artery disease status post WA along with a stroke, mother at age of 89 from old age and dementia. Patient has 1 brother who is a retired pathologist and 1 sister who is a dentist, patient delcid d 3 sons one of them in a car accident by drunk haul truck driver PHYSICAL EXAMINATION: General: 69-year-old female laying down in bed in no apparent distress. HEENT: Head is atraumatic, normocephalic, pupils were equal round reactive to light and recommendation, extraocular muscle movement were intact, sclera nonicteric, conjunctivae were pale, mucous membranes of the mouth are somewhat dry. Neck: Supple, no JVP, normal carotid upstroke bilaterally, no lymphadenopathy. Chest: Decreased breath sounds at the bases, few rhonchi, no expiratory wheezes, no chest wall tenderness, no intercostal retractions. Heart: First heart sound is normal, second heart sounds normal there is no gallop or murmur no rubs or heaves. Abdomen: Soft, nontender, nondistended, positive bowel sounds. Extremities: There is no edema no calf tenderness DP +2 bilaterally. Neurologic examination: Patient is awake alert and oriented x3 , cranial nerves II-12 appear grossly intact, muscle power were 5 out of 5 in left upper extremity and 5 out of 5 in bilateral lower extremities, deep tendon reflexes normal bilaterally. ASSESSMENT AND PLAN: 1. Postoperative day #0 status post right shoulder reverse arthroplasty patient was instructed to continue with incentive spirometer to reduce incidence of atelectasis and healthcare associated pneumonia, increase activity, continue current pain management as outlined by orthopedic surgery, hopefully patient will be discharged home in the next 24 hours. 2. Coronary artery disease as evidenced by CT of the coronary artery that showed evidence of 70% stenosis of the LAD has been managed with conservative management continue aspirin 81 mg once every day, Zetia 10 mg once every day, atorvastatin 40 mg once every day monitor the patient lipid panel, keep LDL 55- 70. Continue patient on metoprolol XL 12.5 mg orally once every day. 3. Hypertension and hypertensive cardiovascular disease. Continue patient on lisinopril 20/25 mg orally once every day, continue metoprolol ER 12.5 mg once every day, monitor the patient blood pressure very closely. 4. Mixed hyperlipidemia. Continue patient on atorvastatin 40 mg once every day, Zetia 10 mg once every day, monitor lipid panel, keep LDL 55-70. 5. History of osteoporosis. Calcium and vitamin D recommended for the patient to be on Prolia injection once every 6-month. 6. History of osteoarthritis . Continue with current pain management. 7. History of breast cancer status post left partial mastectomy September 2023 post chemo and radiation therapy, continue with hormonal therapy exemestane 25 mg orally once every day. 8. DVT prophylaxis. Early ambulation. 9. GI prophylaxis. Continue PPI. 10. Thank you for the consult we will follow the patient with you. Past Medical History Past Medical History: Eye Disorder, Hyperlipidemia, Hypertension, Osteoarthritis (OA) Additional Past Medical History / Comment(s): bilateral astigmatism,osteoporosis History of Any Multi-Drug Resistant Organisms: None Reported Past Surgical History: Joint Replacement, Orthopedic Surgery Additional Past Surgical History / Comment(s): 07/26/16 total R hip arthroplasty. Other surgical hx: CATARACTS BILATERAL.,lt ankle ORIF-plates removed, ORIF left femur-., carpal tunnel, cyst removed from spine, pain procedures Past Anesthesia/Blood Transfusion Reactions: Previous Problems w/ Anesthesia, Motion Sickness, Postoperative Nausea & Vomiting (PONV) Additional Past Anesthesia/Blood Transfusion Reaction / Comm: HYPOTENSION. no problems with prior blood transfusion Past Psychological History: No Psychological Hx Reported Smoking Status: Never smoker Past Alcohol Use History: Occasional Past Drug Use History: None Reported - Past Family History Mother Family Medical History: No Reported History Medications and Allergies Home Medications Medication Instructions Recorded Confirmed Type Multivitamins, Thera [Multivitamin 1 tab PO DAILY 12/05/14 08/08/24 History (formulary)] Cholecalciferol [Vitamin D3 (25 150 mcg PO DAILY 12/08/14 08/08/24 History Mcg = 1000 Iu)] L.acidoph,Plant/B.animal,Long 1 cap PO DAILY 12/08/14 08/08/24 History [Probiotic Acidophilus Beads] [place]-3 Fatty Acids/Fish Oil [Fish 1 cap PO DAILY 12/08/14 08/08/24 History Oil 1,000 mg Softgel] diazePAM [Valium] 2.5 mg PO HS PRN 08/21/15 08/08/24 History Calcium Carbonate/Vitamin D3 2 tab PO DAILY 07/22/16 08/08/24 History [Calcium 600-Vit D3 5 Mcg (200 Iu)] Lysine 500 mg PO DAILY 07/22/16 08/08/24 History Enalapril/Hydrochlorothiazide 1 tab PO QAM 09/17/20 08/08/24 History [Enalapril/Hydrochlorothiazide 10-25 mg Tablet] Magnesium Oxide [Guillen] 500 mg PO DAILY 09/17/20 08/08/24 History Aspirin 81 mg PO DAILY 09/06/23 08/08/24 History Ezetimibe [Zetia] 10 mg PO DAILY 09/06/23 08/08/24 History Metoprolol Succinate [[place] 12.5 mg PO QAM 09/06/23 08/08/24 History Sprinkle] Exemestane [Aromasin] 25 mg PO DAILY 08/08/24 08/08/24 History Inulin/Chromium Picolinate [Fiber 3 tab PO HS 08/08/24 08/08/24 History Gummies Chew] Rosuvastatin Calcium 20 mg PO DAILY 08/08/24 08/08/24 History Allergies Allergy/AdvReac Type Severity Reaction Status Date / Time codeine AdvReac Nausea Verified 08/13/24 06:00 tramadol AdvReac Nausea Verified 08/13/24 06:00 narcotic AdvReac Nausea Uncoded 08/13/24 06:00 Physical Exam Vitals: Vital Signs Temp Pulse Resp BP Pulse Ox 08/13/24 12:00 97.5 F L 72 17 137/85 98 08/13/24 11:45 57 L 127/79 98 08/13/24 11:30 56 L 129/78 98 08/13/24 11:15 57 L 127/79 98 08/13/24 11:00 64 119/77 98 08/13/24 10:45 59 L 118/76 95 08/13/24 10:30 65 117/81 97 08/13/24 10:15 59 L 144/84 97 08/13/24 10:00 58 L 134/82 97 08/13/24 09:45 60 127/77 92 L 08/13/24 09:20 67 14 121/69 94 L 08/13/24 08:56 66 16 153/88 93 L 08/13/24 08:41 97 F L 69 15 123/71 99 08/13/24 06:53 54 L 16 164/88 98 08/13/24 06:11 97.7 F 65 16 170/96 97 Intake and Output 08/12/24 08/13/24 08/13/24 22:59 06:59 14:59 Intake Total 400 851 Output Total 200 Balance 400 651 Intake: IV 400 851 Output: Estimated Blood Loss 200 Other: Weight 56.2 kg 56.2 kg
[2024-08-13] MEDS ORDERED: NON FORMULARY DRUG (Inulin/Chromium Picolinate [Fiber Gummies Chew] 1 EACH Tab.Chew) PO SCH (21:00)
[2024-08-13] MEDS: SENNOSIDES-DOCUSATE SODIUM 1 EACH TAB PO PRN (23:05)
[2024-08-13] MEDS: IBUPROFEN 800 MG TAB PO PRN (23:05)
[2024-08-13] MEDS: diazePAM 5 MG TAB PO PRN (23:06)
[2024-08-13] MEDS: ONDANSETRON 4 MG/2 ML VIAL IVP PRN (23:06)
[2024-08-14] MEDS: HYDROcodone/APAP 5-325MG 1 EACH TAB PO PRN (01:14)
[2024-08-14 08:22] VITALS: BP 163/87; PULSE 67; RESP 17; TEMP 97.9
[2024-08-14] MEDS ORDERED: NON FORMULARY DRUG (Lysine [Lysine] 500 MG Tablet) PO SCH (09:00)
[2024-08-14] MEDS ORDERED: NON FORMULARY DRUG (Omega-3 Fatty Acids/Fish Oil [Fish Oil 1,000 Mg Softgel] 1 EACH Capsul PO SCH (09:00)
[2024-08-14] MEDS: MULTIVITAMINS, THERA 1 EACH TAB PO SCH (09:28)
[2024-08-14] MEDS: ATORVASTATIN 40 MG TAB PO SCH (09:28)
[2024-08-14] MEDS: ASPIRIN 81 MG PO SCH (09:28)
[2024-08-14] MEDS: EZETIMIBE 10 MG TAB PO SCH (09:29)
[2024-08-14] MEDS: CALCIUM CARB-VIT D 500 MG-5 MCG TAB PO SCH (09:29)
[2024-08-14] MEDS: lisinopriL 20 MG TAB PO SCH (09:30)
[2024-08-14] MEDS: METOPROLOL SUCCINATE (ER) 25 MG TAB.ER.24H PO SCH (09:31)
[2024-08-14] MEDS: LACTOBACILLUS ACIDOPHILUS/PECT 1 EACH CAPSULE PO SCH (09:31)
[2024-08-14] MEDS: MAGNESIUM OXIDE 400 MG TAB PO SCH (09:31)
[2024-08-14] MEDS: CHOLECALCIFEROL 125 MCG (5000 IU) TABLET PO SCH (09:31)
[2024-08-14] MEDS: hydroCHLOROthiazide 25 MG TAB PO SCH (09:32)
--- NOTE | 2024-08-14 10:44 | P.DS ---
Providers Expected date of discharge: 08/14/24 Attending physician: Facundo Parr Consults: 08/13/24 08:49 Consult Physician Routine Consulting Provider: Chele Mcneal Consult Reason/Comments: medical management Do you want consulting provider notified?: Yes Primary care physician: Chele Mcneal - Discharge Diagnosis(es) (1) S/p reverse total shoulder arthroplasty Current Visit: Yes Status: Acute (2) Osteoarthritis of right shoulder Current Visit: Yes Status: Acute Hospital Course: This is a 69-year-old female with known history of degenerative arthritis of the right shoulder with rotator cuff tear. The patient presented for evaluation as an outpatient. After discussion and consideration patient elects to proceed with reverse total shoulder arthroplasty. The patient is seen preoperatively by Dr. Parr and medically cleared for surgery by their primary care physician. Patient is admitted to [facility] on 08/13/2024 for reverse total shoulder arthroplasty. The procedure is performed without complication or sequelae. The patient is doing well postoperatively. Labs and vital signs are stable on day of discharge. On day of discharge the patient's shoulder incision is healing well. There is minimal erythema. There is no drainage noted at this time. There is minimal soft tissue swelling to the shoulder. Patient has full hand and wrist motion without difficulty or pain. Neurovascular status to the right upper extremity is intact. Patient is discharged home in good condition. Please see med rec for accurate list of home medications. Plan - Discharge Summary Discharge Rx Participant: No New Discharge Prescriptions: New HYDROcodone/APAP 5-325MG [[place] 5-325] 1 - 2 tab PO Q6HR PRN #32 tab PRN Reason: Pain Sennosides [Senokot] 2 tab PO DAILY PRN #60 tablet PRN Reason: Constipation No Action Multivitamins, Thera [Multivitamin (formulary)] 1 tab PO DAILY L.acidoph,Plant/B.animal,Long [Probiotic Acidophilus Beads] 1 cap PO DAILY [place]-3 Fatty Acids/Fish Oil [Fish Oil 1,000 mg Softgel] 1 cap PO DAILY Cholecalciferol [Vitamin D3 (25 Mcg = 1000 Iu)] 150 mcg PO DAILY diazePAM [Valium] 2.5 mg PO HS PRN PRN Reason: Insomnia Lysine 500 mg PO DAILY Calcium Carbonate/Vitamin D3 [Calcium 600-Vit D3 5 Mcg (200 Iu)] 2 tab PO DAILY Enalapril/Hydrochlorothiazide [Enalapril/Hydrochlorothiazide 10-25 mg Tablet] 1 tab PO QAM Magnesium Oxide [Guillen] 500 mg PO DAILY Ezetimibe [Zetia] 10 mg PO DAILY Rosuvastatin Calcium 20 mg PO DAILY Metoprolol Succinate [[place]argo Sprinkle] 12.5 mg PO QAM Aspirin 81 mg PO DAILY Exemestane [Aromasin] 25 mg PO DAILY Inulin/Chromium Picolinate [Fiber Gummies Chew] 3 tab PO HS Discharge Medication List Multivitamins, Thera [Multivitamin (formulary)] 1 tab PO DAILY 12/05/14 [History] Cholecalciferol [Vitamin D3 (25 Mcg = 1000 Iu)] 150 mcg PO DAILY 12/08/14 [History] L.acidoph,Plant/B.animal,Long [Probiotic Acidophilus Beads] 1 cap PO DAILY 12/08/14 [History] [place]-3 Fatty Acids/Fish Oil [Fish Oil 1,000 mg Softgel] 1 cap PO DAILY 12/08/14 [History] diazePAM [Valium] 2.5 mg PO HS PRN 08/21/15 [History] Calcium Carbonate/Vitamin D3 [Calcium 600-Vit D3 5 Mcg (200 Iu)] 2 tab PO DAILY 07/22/16 [History] Lysine 500 mg PO DAILY 07/22/16 [History] Enalapril/Hydrochlorothiazide [Enalapril/Hydrochlorothiazide 10-25 mg Tablet] 1 tab PO QAM 09/17/20 [History] Magnesium Oxide [Guillen] 500 mg PO DAILY 09/17/20 [History] Aspirin 81 mg PO DAILY 09/06/23 [History] Ezetimibe [Zetia] 10 mg PO DAILY 09/06/23 [History] Metoprolol Succinate [[place]spargo Sprinkle] 12.5 mg PO QAM 09/06/23 [History] Exemestane [Aromasin] 25 mg PO DAILY 08/08/24 [History] Inulin/Chromium Picolinate [Fiber Gummies Chew] 3 tab PO HS 08/08/24 [History] Rosuvastatin Calcium 20 mg PO DAILY 08/08/24 [History] HYDROcodone/APAP 5-325MG [[place] 5-325] 1 - 2 tab PO Q6HR PRN #32 tab 08/14/24 [Rx] Sennosides [Senokot] 2 tab PO DAILY PRN #60 tablet 08/14/24 [Rx] Follow up Appointment(s)/Referral(s): Facundo Parr DO [Doctor of Osteopathic Medicine] - 2 Weeks Activity/Diet/Wound Care/Special Instructions: Leave dressing intact. Dressing may be removed in 7 days. Then change dressing daily until follow up. May shower with initial dressing intact and after removal. If dressing become saturated, please remove. Keep arm in sling. Ice to shoulder Please follow up with [facility] and call with any questions or concerns, . Discharge Disposition: HOME SELF-CARE
== END 2024-08-14 12:17 | disposition home or self-care (01) ==
LOC: OR 05:33 → 4SSUR 08:27 → OR 08-14 12:17
PROVIDERS: ATTEND Orthopaedic Surgery
DX: M19.011 Primary osteoarthritis, right shoulder (principal); I25.10 Atherosclerotic heart disease of native coronary artery without angina pectoris; I11.9 Hypertensive heart disease without heart failure; E78.2 Mixed hyperlipidemia; M75.101 Unspecified rotator cuff tear or rupture of right shoulder, not specified as traumatic; M81.0 Age-related osteoporosis without current pathological fracture; Z79.82 Long term (current) use of aspirin; Z79.899 Other long term (current) drug therapy; Z85.3 Personal history of malignant neoplasm of breast; Z88.5 Allergy status to narcotic agent; Z90.89 Acquired absence of other organs
CPT/HCPCS: 73020; 23472; J2250; J1100; J0690 ×2; J2405; J3010; 64415

== ENCOUNTER → 2024-09-02 | Outpatient (CLI) | payer MEDICARE ==
--- NOTE | 2024-09-03 15:05 | MM ---
Reason for Exam: Hx of breast cancer, conservation therapy. Last screening mammogram was performed 12 month(s) ago. Patient History: Menarche at age 11. First Full-Term at age 29. Late child-bearing (after 30). Postmenopausal. Breast cancer, left, age 68. 09/14/2023, Malignant MG stereo VAD BX LT on the left side. 05/16/2007, Benign Cyst Aspiration on the left side. Maternal grandmother had breast cancer, age 80. Maternal aunt had breast cancer under age 50. Maternal cousin had breast cancer at or over age 50. Prior Study Comparison: 07/18/2018 Bilateral Screening Mammogram, [facility]. 08/12/2019 Bilateral Screening Mammogram, [facility]. 08/17/2020 Bilateral Screening Mammogram, [facility]. 08/19/2021 Bilateral Screening Mammogram, [facility]. 08/22/2022 Bilateral MG 3D screening mammo w/cad, [facility]. 08/23/2023 Bilateral MG 3D screening mammo w/cad, [facility]. 08/31/2023 Left MG 3D work up w/cad LT, [facility]. Tissue Density: The breasts are heterogeneously dense, which may obscure small masses. Findings: Analyzed By CAD. There is no suspicious group of microcalcifications or new suspicious mass in either breast. Overall Assessment: Negative, BI-RAD 1 Management: Screening Mammogram of both breasts in 1 year. . Patient should continue monthly self-breast exams. A clinical breast exam by your physician is recommended on an annual basis. This exam should not preclude additional follow-up of suspicious palpable abnormalities. Note on Kallie scores and lifetime risk: 1. A Kallie score greater than 3% is considered moderate risk. If this is the case, consider specialist referral to assess eligibility for a risk reducing agent. 2. If overall lifetime risk for the development of breast cancer is 20% or higher, the patient may qualify for future screening with alternating mammogram and breast MRI. [facility], , 09/03/2024 3:02 PM. Electronically signed and approved by: Zurdo Hanson M.D. Radiologis
== END | disposition home or self-care (01) ==
LOC: RADMAMWWP 09:55
PROVIDERS: ATTEND Internal Medicine Hematology & Oncology
DX: Z12.31 Encounter for screening mammogram for malignant neoplasm of breast (principal); R92.333 Mammographic heterogeneous density, bilateral breasts; Z78.0 Asymptomatic menopausal state; Z80.3 Family history of malignant neoplasm of breast; Z85.3 Personal history of malignant neoplasm of breast
CPT/HCPCS: 77063; 77067

== ENCOUNTER 2025-03-27 12:16 | Day surgery (SDC) | payer MEDICARE ==
[2025-03-25 15:51] VITALS: BMI 22.1
[~2025-03-27 12:16] MED LIST changes: +LIDOCAINE 1% (10MG/ML) FOR IV START INTRADERMA PRN; -TRANEXAMIC 1,000 MG/100ML-NACL 1,000 MG in SALINE 1 100ML.BAG IVPB PRN
[2025-03-27] MEDS: IV FLUID CONTINUATION 1,000 ML IV ONE (12:29)
[2025-03-27 12:45] VITALS: TEMP 97.6
[2025-03-27] MEDS: LACTATED RINGERS 1,000 ML IV SCH (12:57)
[2025-03-27] MEDS ORDERED: PROPOFOL 10 MG/ML 20 ML VIAL IV ONE (13:00)
[2025-03-27] MEDS ORDERED: LABETALOL 5 MG/ML VIAL MDV ONE (13:00)
--- NOTE | 2025-03-27 13:04 | P.GSHP ---
History of Present Illness H&P Date: 03/27/25 Chief Complaint: Colon cancer screening 69-year-old female here for colonoscopy. Last colonoscopy 10 years ago. Cologuard was -5 years ago. No bowel complaints. No family history of colon cancer. Past Medical History Past Medical History: Hyperlipidemia, Hypertension, Rheumatoid Arthritis (RA) Additional Past Medical History / Comment(s): Hx left breast cancer Sep 2023 with lumpectomy and radiation. Gets woozy when fasting, is a grazer, eats small amounts frequently. Varicose veins. History of Any Multi-Drug Resistant Organisms: None Reported Past Surgical History: Joint Replacement, Orthopedic Surgery Additional Past Surgical History / Comment(s): Total right hip replacement, bilateral cataract surgery, left ankle ORIF, left femur fracture repair, bilateral carpal tunnel, cyst removed from spine, pain procedures, reverse right shoulder replacement, left breast lumpectomy. Past Anesthesia/Blood Transfusion Reactions: Previous Problems w/ Anesthesia, Motion Sickness, Postoperative Nausea & Vomiting (PONV) Additional Past Anesthesia/Blood Transfusion Reaction / Comment(s): HYPOTENSION WITH CARPAL TUNNEL. Smoking Status: Never smoker - Past Family History Father Family Medical History: CVA/TIA, Myocardial Infarction (NC) Medications and Allergies Home Medications Medication Instructions Recorded Confirmed Type Multivitamins, Thera [Multivitamin 1 tab PO DAILY 12/05/14 03/27/25 History (formulary)] Cholecalciferol [Vitamin D3 (25 150 mcg PO DAILY 12/08/14 03/27/25 History Mcg = 1000 Iu)] L.acidoph,Plant/B.animal,Long 1 cap PO DAILY 12/08/14 03/27/25 History [Probiotic Acidophilus Beads] [place]-3 Fatty Acids/Fish Oil [Fish 1 cap PO DAILY 12/08/14 03/27/25 History Oil 1,000 mg Softgel] diazePAM [Valium] 2.5 mg PO HS PRN 08/21/15 03/27/25 History Calcium Carbonate/Vitamin D3 2 tab PO DAILY 07/22/16 03/27/25 History [Calcium 600-Vit D3 5 Mcg (200 Iu)] Lysine 1,000 mg PO DAILY 07/22/16 03/27/25 History Enalapril/Hydrochlorothiazide 1 tab PO QAM 09/17/20 03/27/25 History [Enalapril/Hydrochlorothiazide 10-25 mg Tablet] Aspirin 81 mg PO DAILY 09/06/23 03/27/25 History Ezetimibe [Zetia] 10 mg PO DAILY 09/06/23 03/27/25 History Inulin/Chromium Picolinate [Fiber 3 tab PO HS 08/08/24 03/27/25 History Gummies Chew] Rosuvastatin Calcium 20 mg PO DAILY 08/08/24 03/27/25 History Ibuprofen [Motrin Ib] 200 mg PO Q8H PRN 03/25/25 03/27/25 History Letrozole 2.5 mg PO DAILY 03/25/25 03/27/25 History Metoprolol Succinate [Metoprolol 12.5 mg PO QAM 03/25/25 03/27/25 History Succinate ER] Vitamin K2 [Mk-7] 180 mcg PO DAILY 03/25/25 03/27/25 History Allergies Allergy/AdvReac Type Severity Reaction Status Date / Time codeine AdvReac Nausea Verified 03/27/25 12:36 tramadol AdvReac Nausea Verified 03/27/25 12:36 narcotic AdvReac Nausea Uncoded 03/27/25 12:36 Surgical - Exam Vital Signs Temp Pulse Resp BP Pulse Ox 97.6 F 68 16 174/118 97 03/27/25 12:43 03/27/25 12:43 03/27/25 12:43 03/27/25 12:43 03/27/25 12:43 Physical exam: General: Well-developed, well-nourished HEENT: Normocephalic, sclerae nonicteric Abdomen: Nontender, nondistended Extremities: No edema Neuro: Alert and oriented Assessment and Plan (1) Colon cancer screening Narrative/Plan: Will proceed with colonoscopy at this time. Current Visit: Yes Status: Acute Code(s): Z12.11 - ENCOUNTER FOR SCREENING FOR MALIGNANT NEOPLASM OF COLON SNOMED Code(s): 832782493
--- NOTE | 2025-03-27 13:27 | P.PCN ---
Date of Procedure: 03/27/25 Procedure(s) Performed: PREOPERATIVE DIAGNOSIS: Colon cancer screening POSTOPERATIVE DIAGNOSIS: Small descending colon polyp, diverticulosis PROCEDURE: Colonoscopy with snare polypectomy ANESTHESIA: MAC SURGEON: Delano Estes M.D. SPECIMENS: Polyp ENDOSCOPIC PROCEDURE: The patient was placed on the endoscopy table in the left decubitus position. The Olympus colonoscope was inserted into the anus and passed under direct visualization to the base of the cecum. The appendiceal orifice was visualized. From that point the scope was slowly withdrawn inspecting all surfaces carefully. There were no neoplastic inflammatory or polypoid lesions throughout the cecum, ascending, and transverse colon. In the descending colon a very small flat polyp was noted then removed using the snare with cautery technique. No significant specimen was noted. The remainder of the descending sigmoid and rectum was normal. There was moderate left-sided diverticulosis. Digital rectal examination was normal. The patient was taken to the recovery room in stable condition per anesthesia guidelines. RECOMMENDATIONS: If pathology obtained will contact patient. Otherwise consider repeat colonoscopy versus Cologuard 7 years.
[2025-03-27 13:53] VITALS: BP 145/98; PULSE 60; RESP 16
== END 2025-03-27 14:13 | disposition home or self-care (01) ==
LOC: ORWHC2ENDO 12:16
PROVIDERS: ATTEND Surgery
DX: Z12.11 Encounter for screening for malignant neoplasm of colon (principal); D12.4 Benign neoplasm of descending colon; K57.30 Diverticulosis of large intestine without perforation or abscess without bleeding; I10 Essential (primary) hypertension; E78.5 Hyperlipidemia, unspecified; M06.9 Rheumatoid arthritis, unspecified; Z91.89 Other specified personal risk factors, not elsewhere classified; Z79.82 Long term (current) use of aspirin; Z79.811 Long term (current) use of aromatase inhibitors; Z79.899 Other long term (current) drug therapy; Z85.3 Personal history of malignant neoplasm of breast; Z88.5 Allergy status to narcotic agent
CPT/HCPCS: 88305; 45385; J2704; J1920